=== PATIENT | male | born 1930 | race Caucasian/White ===

== ENCOUNTER 2017-03-12 19:45 | Outpatient (CLI) | payer OTHER | END 2017-03-12 19:46 | LOC: AMBL 19:45 | PROVIDERS: ATTEND Family Medicine | DX: R11.2 Nausea with vomiting, unspecified (principal); R19.7 Diarrhea, unspecified; K92.1 Melena; Z79.01 Long term (current) use of anticoagulants ==

== ENCOUNTER 2017-03-28 16:46 | Outpatient (CLI) | END 2017-03-28 16:47 | disposition home or self-care (01) | LOC: AMBL 16:46 | PROVIDERS: ATTEND Emergency Medicine | DX: R06.02 Shortness of breath (principal); J44.9 Chronic obstructive pulmonary disease, unspecified; I10 Essential (primary) hypertension; Z99.81 Dependence on supplemental oxygen ==